=== PATIENT | female | born 1940 | race Caucasian/White ===

== ENCOUNTER 2018-05-20 01:09 | Inpatient (IN) ==
--- NOTE | 2018-05-20 01:37 | ED ---
HPI General Chief Complaint: Fall Stated Complaint: transfer from [place]/medical Time Seen by Provider: 05/20/18 01:16 Source: patient and old records reviewed Mode of arrival: EMS Limitations: no limitations History of Present Illness HPI Narrative: 77-year-old woman, fell 4 days ago, on Eliquis, seen in outside ED was diagnosed with subdural hematoma, 0.9 mm, transferred to trauma surgery. No complaints now. She went to the ED because her sister was worried about a contusion on her posterior occiput. No headache. No other complaints. Related Data Home Medications Medication Instructions Recorded Confirmed aspirin [Aspirin Low Dose] 81 mg PO DAILY 05/20/18 05/20/18 calcium carbonate-vitamin D3 1 tab PO BID 05/20/18 05/20/18 [Calcium 500 With D] Allergies Allergy/AdvReac Type Severity Reaction Status Date / Time digoxin AdvReac Bleeding Verified 05/20/18 01:21 warfarin [From Coumadin] AdvReac Bleeding Verified 05/20/18 01:21 Review of Systems ROS: all other systems reviewed are negative [facility] Social History Social History Substance History: No History of Abuse Second Hand Smoke Exposure: No Smoking Status: Former smoker How Often Do You Have a Drink Containing Alcohol: Monthly or less Immunization History Tetanus Immunization: <5 Years Hx Influenza Vaccine This Season: Yes Exam Narrative Exam Narrative: GENERAL: Well-appearing 77-year-old woman, nontoxic, no acute distress. SKIN: Focused skin assessment warm/dry. HEAD: Atraumatic. Small contusion on the posterior occiput. EYES: Pupils equal and round. No scleral icterus. No injection or drainage. ENT: No nasal bleeding or discharge. Mucous membranes pink and moist. NECK: Moves neck freely. CARDIOVASCULAR: Regular rate and rhythm. No murmur appreciated. RESPIRATORY: No accessory muscle use. Clear to auscultation. Breath sounds equal bilaterally. GASTROINTESTINAL: Abdomen soft, non-tender, nondistended. Hepatic and splenic margins not palpable. MUSCULOSKELETAL: No obvious deformities. No clubbing. No cyanosis. No edema. NEUROLOGICAL: Awake and alert. No obvious cranial nerve deficits. Motor grossly within normal limits. Normal speech. PSYCHIATRIC: Appropriate mood and affect; insight and judgment normal. Course Initial Documented Vital Signs Temperature 98.4 F 05/20/18 01:12 Pulse Rate 101 H 05/20/18 01:12 Respiratory Rate 18 05/20/18 01:12 Blood Pressure 145/98 H 05/20/18 01:12 Pulse Oximetry 96 05/20/18 01:12 Last Documented Vital Signs Temperature 98.4 F 05/20/18 01:12 Pulse Rate 101 H 05/20/18 01:12 Respiratory Rate 18 05/20/18 01:12 Blood Pressure 145/98 H 05/20/18 01:12 Pulse Oximetry 96 05/20/18 01:12 Medical Decision Making MDM Narrative Medical decision making narrative: Reviewed transfer records. Reviewed CT imaging. Spoke with Dr. Perales. Patient's asymptomatic at this time. Looks fantastic. Unremarkable exam. Will admit for serial exams. Medical Screen Exam Complete: Yes Emergency Medical Condition: Yes Discharge Plan Physicians Team ED Provider: Chavo Hernadez Rxs /Orders / Referrals /Forms Prescriptions: No Action aspirin [Aspirin Low Dose] 81 mg Tablet,Delayed Release (Dr/Ec) 81 mg PO DAILY RF: 0 calcium carbonate-vitamin D3 [Calcium 500 With D] 500 mg(1,250mg) -400 unit Tablet 1 tab PO BID RF: 0 Discharge Interventions Interventions: Vital Signs Last Done: 05/20/18 01:12 Status ED Status: With Doctor
[2018-05-20] MEDS ORDERED: Morphine Inj 4 MG/ML Vial IV.PUSH PRN (04:03)
[2018-05-20] MEDS: Sod Chloride 0.9% Inj 1,000 ML IV.CONT SCH ×2 (04:43→15:43)
[2018-05-20] MEDS: Pantoprazole Inj 40 MG Vial IV.PUSH SCH (04:44)
--- NOTE | 2018-05-20 05:46 | XR ---
EXAM DATE: 05/20/2018 5:41 AM EDT AGE/SEX: 77 years / Female INDICATIONS: Shortness of breath. CLINICAL DATA: This is the patient's initial encounter. Patient reports that signs and symptoms have been present for 1 day and indicates a pain score of 0/10. MEDICAL/SURGICAL HISTORY: None. CABG. Pacemaker. COMPARISON: No prior exams available for comparison. FINDINGS: Portable AP view of the chest demonstrates a normal-sized cardiac silhouette with calcification of th e aorta. Patient is post median sternotomy and CABG. Left chest wall cardiac pacing device is present with leads overlying the right heart. EKG lines overlie the patient. Lungs are underinflated and the re is left base airspace consolidation and interstitial prominence bilaterally. Linear subsegmental a telectasis is present at the right lung base. No pleural effusion or pneumothorax is seen. The bones and soft tissues demonstrate no acute abnormality. CONCLUSION: Left lung base airspace consolidation with nonspecific interstitial prominence bilaterally. Electronically signed by: Justo Padron MD 05/20/2018 5:44 AM EDT
--- NOTE | 2018-05-20 05:58 | MH ---
cc: Shawn Perales MD DATE OF ADMISSION: 05/20/2018 CHIEF COMPLAINT: Trauma, trauma transfer from [place], subdural hematoma. HISTORY OF PRESENT ILLNESS: The patient is a 77-year-old female who presents status post fall down stairs. The patient was actually noted to fall approximately 3 days ago in [place] and was complaining of occipital and frontal headaches and went for further evaluation and workup with findings of CT with a right subdural, 9 mm, no shift. The patient was transferred to [facility] for definitive management. The patient is neurologically intact. She is hemodynamically stable. She is hypertensive, systolic of 181 and multiple medical issues include diabetes, coronary artery disease, status post CABG on Xarelto, atrial fibrillation, CHF, hypertension. She has a GCS of 15, again, and is neurologically intact otherwise. PAST MEDICAL HISTORY: Coronary artery disease, CHF, diabetes, hyperlipidemia, hypertension, osteoporosis. PAST SURGICAL HISTORY: Angioplasty, stents, pacer, CABG, tonsillectomy. SOCIAL HISTORY: Denies smoking, ETOH or IVDA. ALLERGIES: COUMADIN AND DIGOXIN. MEDICATIONS: See EMR, Eliquis. FAMILY HISTORY: Denies diabetes or hypertension. REVIEW OF SYSTEMS: A general 12-point review of systems is negative except for as per HPI. PHYSICAL EXAMINATION: GENERAL: No acute distress. VITAL SIGNS: Temperature 98.7, pulse 90, respirations 18, blood pressure 188/83, saturation 99%. HEENT: Pupils equal, round, reactive. HEAD: Normocephalic. Positive superficial hematoma of occipital area. Extraocular muscles intact. NECK: Supple. Trachea midline. Clavicles nontender. LUNGS: Bilateral expansion, clear. HEART: S1, S2, irregular. Pacer palpable. ABDOMEN: Soft, nontender, nondistended. EXTREMITIES: Warm and well perfused. No evidence of trauma. NEUROLOGIC: GCS of 15. Cranial nerves 2-10 intact grossly. 5/5 motor in all extremities. PSYCHIATRIC: Appropriate mood. Appropriate insight. SKIN: No other lesions except for as above, occiput bruising and hematoma. LABORATORY AND DIAGNOSTIC DATA: WBC 7.3, hemoglobin 11.1, hematocrit 33.3, platelets 188. Sodium 138, potassium 4.2, chloride 101, BUN is 19, creatinine 0.89. INR is 1.7, PTT is 40. A CT at [facility] of the head reviewed by myself showing right subtentorial subdural hematoma [address] neck: No evidence of fracture. ASSESSMENT : 1. The patient is a 77-year-old female, status post fall, subdural hematoma, on Eliquis, multiple medical issues. 2. Hypertension. PLAN: After a full clinical assessment, the patient with the above noted issues. At this point, the patient will be admitted to [facility] ICU for close monitoring. The patient will be blood pressure controlled with restarting home medications and will monitor closely. The patient will need frequent neurologic checks every 2 hours. The patient will be on monitor for atrial fibrillation, pacer and cardiac history. The patient has a history of diabetes for which she will be on glucose checks and insulin sliding scale. We will discuss with Dr. Jules for neurosurgery for further evaluation and assessment and defer to his neurologic expertise. Discussed with [facility] Dr. Lara. MD WILFRID Cain/meli , 04:28 AM , 04:37 AM
[2018-05-20] MEDS ORDERED: Loratadine 10 MG Tablet PO PRN (09:41)
[2018-05-20] MEDS ORDERED: FERROUS GLUCONATE 240 MG PO SCH (09:45)
[2018-05-20] MEDS: Docusate Sodium 100 MG Capsule PO SCH ×3 (09:46→20:23)
--- NOTE | 2018-05-20 11:22 | P.PNCC ---
Subjective Brief History: Patient is hospital day 1 but posttrauma day 5 after falling down stairs. She was a trauma transfer from [place] because she was found to have a small right subdural hematoma and she takes Eliquis. 24 Hour Review/Hospital Course: 05/20/2018 Patient was admitted yesterday for a subdural hematoma on Eliquis. She remains clinically stable complaining of headache only. She may go to the floor or potentially be discharged home pending a repeat head CT today Objective Vital Signs / I&O: Vital Signs 05/20/18 01:12 05/20/18 03:23 05/20/18 04:07 Temperature 98.4 F Pulse Rate 101 H 96 H 98 H Respiratory Rate 18 16 16 Blood Pressure 145/98 H 145/98 H 181/83 H Pulse Oximetry 96 95 98 05/20/18 04:27 05/20/18 05:12 05/20/18 05:47 Temperature Pulse Rate 93 H 86 92 H Respiratory Rate 16 16 16 Blood Pressure 181/83 H 182/85 H 182/80 H Pulse Oximetry 95 94 L 92 L 05/20/18 06:00 05/20/18 06:55 05/20/18 07:44 Temperature 98.7 F Pulse Rate 96 H 96 H Respiratory Rate 24 Blood Pressure 179/74 H 165/77 H Pulse Oximetry 98 98 94 L 05/20/18 08:00 Temperature 98.5 F Pulse Rate 84 Respiratory Rate 18 Blood Pressure 171/74 H Pulse Oximetry 94 L Intake & Output 05/19/18 05/20/18 05/20/18 18:59 06:59 18:59 Intake Total 480 / 480 0 / 0 Balance 480 / 480 0 / 0 Weight 65.771 kg Intake: Oral 480 / 480 0 / 0 Other: # Voids 3 3 Weight On Admission 57.4 kg Result Diagrams: 05/21/18 03:32 05/21/18 03:32 Imaging: Impressions Chest X-Ray 05/20/18 06:05 CONCLUSION: Left lung base airspace consolidation with nonspecific interstitial prominence bilaterally. - Exam [employer]IST: Alert oriented no acute distress Hemodynamic/Cardiac: Regular rate and rhythm stable Pulmonary/Respiratory: Clear to auscultation bilaterally Abdomen/GI Nutrition: Soft nontender nondistended Renal/I&O: Adequate urine output Assessment and Plan Plan: Transfer to floor Repeat head CT today Discharge planning
--- NOTE | 2018-05-20 11:36 | CT ---
EXAM DATE: 05/20/2018 11:29 AM EDT AGE/SEX: 77 years / Female INDICATIONS: Subdural hematoma, Fall 4 days ago. CLINICAL DATA: This is the patient's initial encounter. Patient reports that signs and symptoms have been present for 4 - 6 days and indicates a pain score of 0/10. MEDICAL/SURGICAL HISTORY: Cerebrovascular disease. Diabetes. Hypertension. Pacemaker. RADIATION DOSE: 56.35 CTDI (mGy) COMPARISON: No prior exams available for comparison. TECHNIQUE: CT of the head without contrast. Using automated exposure control and adjustment of the mA and/or kV according to patient size, radiation dose was kept as low as reasonably achievable to ob tain optimal diagnostic quality images. DICOM format image data is available electronically for revi ew and comparison. FINDINGS: There is an acute subdural hematoma tracking over the top of the tentorium and along the posterior as pects of the falx. The component along the falx measures 2 mm in thickness. A component of the subdur al hemorrhage also tracks over the right temporal and frontal lobes. This component measures 4 mm in thickness. No other hemorrhage observed. No mass effect. No midline shift. Ventricles are normal in s ize. The calvarium is intact. Paranasal sinuses and mastoid air cells are clear. CONCLUSION: 1. Acute subdural hematoma overlying the right cerebral hemisphere and tentorium as detailed above. No mass effect or shift. . Electronically signed by: Denis Hobbs MD 05/20/2018 11:35 AM EDT
[2018-05-20] MEDS: Gabapentin 100 MG Capsule PO SCH (11:51)
[2018-05-20] MEDS: Ascorbic Acid 500 MG Tablet PO SCH (11:51)
[2018-05-20] MEDS: Furosemide 20 MG Tablet PO SCH (11:51)
[2018-05-20] MEDS: Metoprolol Tartrate 100 MG Tablet PO SCH ×2 (11:51→20:23)
[2018-05-20] MEDS: Levothyroxine 50 MCG Tablet PO SCH (11:52)
--- NOTE | 2018-05-20 13:00 | P.CONNS ---
History of Present Illness Service: Neurosurgery Consult date: 05/20/18 Requesting Physician: Shawn Perales (Trauma surgery) Reason for Consult: Acute subdural hemorrhage Primary Care Provider: Ketty Deluca History of Present Illness: 77-year-old woman who tripped and fell at home 4 days ago without loss of consciousness, on Eliquis, seen in [facility] ED was diagnosed with subdural hematoma and transferred to trauma surgery. She went to the ED because her sister was worried about a contusion on her posterior occiput after she saw her primary care physician. Also complains of headaches and intermittent nausea but denies any vertigo or lightheadedness or dizziness. She has been admitted to the intensive care unit and neurosurgery consultation requested. Review of Systems Constitutional: Reports headache(s), Denies anorexia, Denies body ache(s), Denies chills, Denies daytime sleepiness, Denies excessive sweating, Denies fatigue, Denies fever(s), Denies increased appetite, Denies lack of energy, Denies malaise, Denies night sweats, Denies weakness, Denies weight gain, Denies weight loss, Denies other Eyes: Denies blind spots, Denies blurry vision, Denies bulging eyes, Denies change in vision, Denies double vision, Denies discharge, Denies dry eyes, Denies floaters, Denies irritation, Denies itchy eyes, Denies loss of vision, Denies pain, Denies requires corrective lenses, Denies sensitivity to light, Denies other Ears, Nose, Mouth, and Throat: Denies abnormal hearing, Denies bleeding gums, Denies bad breath, Denies change in voice, Denies dental pain, Denies difficulty swallowing, Denies dizziness, Denies dry mouth, Denies ear discharge , Denies ear pain, Denies facial pain, Denies headache(s), Denies hearing loss, Denies hoarseness, Denies lip swelling, Denies nosebleed, Denies mouth lesions, Denies mouth pain, Denies nasal congestion, Denies nasal discharge, Denies nasal obstruction, Denies nasal trauma, Denies neck lump, Denies neck pain, Denies nose pain, Denies pain with swallowing, Denies poor balance, Denies post nasal drip, Denies ringing in the ears, Denies sinus pain, Denies sinus pressure , Denies sore throat, Denies throat swelling, Denies tongue swelling, Denies other Cardiovascular: Denies chest pain, Denies chest pain at rest, Denies chest pain with activity, Denies excessive sweating, Denies fainting, Denies fast heart rate, Denies foot swelling, Denies generalized swelling, Denies irregular heart rhythm, Denies leg pain with activity, Denies leg sores, Denies leg swelling, Denies lightheadedness, Denies radiating jaw, neck or arm pain, Denies rapid, pounding, or irregular heartbeat, Denies shortness of breath, Denies shortness of breath with activity, Denies shortness of breath when lying down, Denies shortness of breath causing sudden awakening, Denies slow heart rate, Denies other Respiratory: Denies change in phlegm color, Denies chest congestion, Denies cough, Denies coughing up blood, Denies excessive phlegm production, Denies pain on inspiration, Denies pain with cough, Denies shortness of breath, Denies shortness of breath with activity, Denies snoring, Denies stridor, Denies wheezing, Denies other Gastrointestinal: Reports nausea, Denies abdominal pain, Denies belching, Denies black, tarry stools, Denies bloating, Denies bright, red blood in stools , Denies change in bowel habits, Denies constant urge to pass stool, Denies change in stools, Denies coffee ground vomit, Denies constipation, Denies cramping, Denies difficulty swallowing, Denies excessive passing of gas, Denies feeling full early, Denies heartburn, Denies incontinent of stools, Denies loose stools, Denies pain with swallowing, Denies vomiting, Denies vomiting blood, Denies other Genitourinary: Denies abnormal periods, Denies abnormal vaginal bleeding, Denies absent period, Denies bleeding between periods, Denies blood in urine, Denies difficulty starting urination, Denies difficulty urinating, Denies dribbling after urination, Denies frequent nighttime urination, Denies genital itching, Denies genital lesions, Denies heavy periods, Denies hot flashes, Denies light periods, Denies nipple discharge, Denies painful intercourse, Denies painful periods, Denies painful urination, Denies pelvic pain, Denies prolapse symptoms, Denies sexual problems, Denies side pain, Denies urinary incontinence, Denies urinary urgency, Denies vaginal discharge, Denies vaginal dryness, Denies vaginal odor, Denies vaginal itching, Denies other Musculoskeletal: Denies abnormal walking, Denies back pain, Denies body aches, Denies decreased muscle mass, Denies deformity, Denies joint pain, Denies joint swelling, Denies limited joint movement, Denies loss of height, Denies muscle cramps, Denies muscle weakness, Denies neck pain, Denies numbness, Denies radiating pain into limb, Denies stiffness, Denies tingling, Denies other Skin/Breast: Denies acne, Denies bleeding lesions, Denies boil, Denies breast swelling, Denies breast skin changes, Denies breast pain, Denies breast lump, Denies change in breast shape, Denies change in hair, Denies change in skin color, Denies changing lesions, Denies dry skin, Denies excessive hair growth, Denies hair loss, Denies itching, Denies lesions, Denies nail changes, Denies new lesions, Denies nipple discharge, Denies non-healing lesions, Denies redness , Denies sensitivity to light, Denies rash, Denies skin pain, Denies skin ulcer , Denies sores, Denies stretch ewrin, Denies unusual bruising, Denies wounds, Denies yellowing of the skin, Denies other Neurologic: Reports headache(s), Denies abnormal hearing, Denies abnormal movements, Denies abnormal speech, Denies abnormal walking, Denies behavioral changes, Denies burning sensations, Denies confusion, Denies dizziness, Denies fainting, Denies frequent falls, Denies lack of coordination, Denies localized weakness, Denies loss of vision, Denies memory loss, Denies numbness, Denies other visual disturbances, Denies radiating pain, Denies restless legs, Denies convulsions, Denies seizure-like activity, Denies sensory deficit, Denies tingling, Denies tingling/numbness/burning sensations, Denies tremor(s), Denies unsteadiness, Denies weakness, Denies other Psychiatric: Denies abnormal sleep pattern, Denies anxiety, Denies behavioral changes, Denies change in appetite, Denies change in sex drive, Denies confusion , Denies depression, Denies difficulty concentrating, Denies hearing things others do not hear, Denies hopelessness, Denies irritability, Denies lack of enjoyment, Denies memory loss, Denies mood swings, Denies panic attacks, Denies paranoia, Denies seeing things others do not see, Denies sensing things others do not sense, Denies tactile hallucinations, Denies thoughts of hurting/killing others, Denies thoughts of hurting/killing yourself, Denies other Endocrine: Denies cold intolerance, Denies excessive sweating, Denies flushing, Denies heat intolerance, Denies increased hunger, Denies increased thirst, Denies increased urination, Denies rapid, pounding, or irregular heartbeat, Denies other Hematologic/Lymphatic: Reports easy bleeding, Reports easy bruising, Denies enlarged lymph nodes, Denies other Allergic/Immunologic: Denies GI upset with certain foods, Denies hives, Denies itchy eyes, Denies lip swelling, Denies seasonal runny nose, Denies throat swelling, Denies tongue swelling, Denies wheezing, Denies other PMFSH - History History Provided By: Patient - Medical History Medical History: Medical History (Last Updated 05/20/18 @ 12:57 by Frederick Jules MD) Presence of combination internal cardiac defibrillator (ICD) and pacemaker ( Acute) Thyroid disorder (Acute) Osteoporosis (Acute) Hypertension (Acute) Hyperlipidemia (Acute) Diabetes (Acute) CHF (congestive heart failure) (Acute) CAD (coronary artery disease) (Acute) Afib (Acute) - Surgical History Surgical History: Surgical History (Last Updated 05/20/18 @ 12:57 by Frederick Jules MD) History of heart artery stent (Acute) H/O angioplasty (Acute) - Tobacco History Second Hand Smoke Exposure: No Smoking Status: Former smoker - Alcohol History How Often Do You Have a Drink Containing Alcohol: Monthly or less - Substance Use History Substance History: No History of Abuse - Travel History Recent Travel in the [place] Within the Last 8 Weeks: No Recent Travel Out of the Country Within the Last 8 Weeks: No - Immunization History Tetanus Immunization: <5 Years Hx Influenza Vaccine This Season: Yes Medications and Allergies Active Medications: Active Medications Hydrocodone Bitart/Acetaminophen ([place] 5/325) 1 tab PO Q4H PRN PRN Reason: Pain > 3 Last Admin: 09/05/18 04:45 Dose: 1 tab Al Hydroxide/Mg Hydroxide (Milk Of Areli Stephens) 30 ml PO BID [facility] Last Admin: 05/20/18 09:57 Dose: Not Given Ascorbic Acid (Vitamin C) 500 mg PO DAILY [facility] Last Admin: 05/20/18 11:51 Dose: 500 mg Atorvastatin Calcium (Lipitor) 10 mg PO DAILY [facility] Last Admin: 05/20/18 12:23 Dose: 10 mg Bacitracin (Baciguent Oint) 1 applicatio TOPICAL BID [facility] Last Admin: 05/20/18 09:55 Dose: Not Given Cetirizine HCl (Zyrtec) 10 mg PO DAILY PRN Chlorhexidine Gluconate (Chlorhexidine 2% Cloth) 3 pack TOPICAL DAILY@0400 [facility] Stop: 05/26/18 03:59 Chlorhexidine Gluconate (Chlorhexidine 2% Cloth) 3 pack TOPICAL DAILY@0400 PRN PRN Reason: Extra cloth needed Stop: 05/26/18 03:59 Cyanocobalamin (Vitamin B12) 1,000 mcg PO DAILY [facility] Last Admin: 05/20/18 11:51 Dose: 1,000 mcg Docusate Sodium (Colace) 100 mg PO BID [facility] Last Admin: 05/20/18 09:57 Dose: Not Given Enalaprilat (Vasotec Inj) 1.25 mg IV.PUSH Q8H PRN PRN Reason: Blood pressure 180/95 Last Admin: 05/20/18 06:57 Dose: 1.25 mg Furosemide (Lasix) 20 mg PO DAILY [facility] Last Admin: 05/20/18 11:51 Dose: 20 mg Gabapentin (Neurontin) 100 mg PO DAILY [facility] Last Admin: 05/20/18 11:51 Dose: 100 mg Sodium Chloride (Ns Inj) 1,000 mls @ 100 mls/hr IV.CONT .Q10H [facility] Last Admin: 05/20/18 04:43 Dose: 100 mls/hr Insulin Detemir (Levemir Inj) 17 unit SQ HS [facility] Isosorbide Mononitrate (Imdur) 120 mg PO DAILY [facility] Levothyroxine Sodium (Synthroid) 50 mcg PO DAILY@0600 [facility] Last Admin: 05/20/18 11:52 Dose: 50 mcg Loratadine (Claritin) 10 mg PO DAILY PRN PRN Reason: Allergic Symptoms Losartan Potassium (Cozaar) 100 mg PO DAILY [facility] Last Admin: 05/20/18 11:51 Dose: 100 mg Metoprolol Tartrate (Lopressor) 100 mg PO BID [facility] Last Admin: 05/20/18 11:51 Dose: 100 mg Morphine Sulfate (Morphine Inj) 2 mg IV.PUSH Q3H PRN PRN Reason: Break through pain Last Admin: 05/20/18 06:12 Dose: 2 mg Non-Formulary Medication (Ferrous Gluconate [Iron High Potency]) 240 mg PO DAILY [facility] Non-Formulary Medication (Teriparatide [Forteo]) 20 mcg SQ DAILY [facility] Non-Formulary Medication (Calcium Carbonate-Vitamin D3 [Calcium 500 With D]) 1 tab PO BID [facility] Ondansetron HCl (Zofran Inj) 4 mg IV.PUSH Q6H PRN PRN Reason: NAUSEA OR VOMITING Last Admin: 05/20/18 06:15 Dose: 4 mg Pantoprazole Sodium (Protonix Inj) 40 mg IV.PUSH Q24H [facility] Last Admin: 05/20/18 04:44 Dose: 40 mg Potassium Chloride (K-Dur) 20 meq PO DAILY [facility] Last Admin: 05/20/18 12:22 Dose: 20 meq Sodium Chloride (Ns Flush) 2 ml IV.FLUSH UNSCH PRN PRN Reason: FLUSH AFTER USING IV ACCESS Allergies Allergy/AdvReac Type Severity Reaction Status Date / Time meperidine Allergy Tachycardia Verified 05/20/18 02:32 atropine AdvReac Tachycardia Verified 05/20/18 02:32 digoxin AdvReac Bleeding Verified 05/20/18 01:21 warfarin [From Coumadin] AdvReac Bleeding Verified 05/20/18 01:21 Home Medications Medication Instructions Recorded Confirmed Type apixaban [Eliquis] 5 mg PO BID 05/20/18 05/20/18 History ascorbic acid (vitamin C) [Vitamin 500 mg PO DAILY 05/20/18 05/20/18 History C] aspirin [Aspirin Low Dose] 81 mg PO DAILY 05/20/18 05/20/18 History calcium carbonate-vitamin D3 1 tab PO BID 05/20/18 05/20/18 History [Calcium 500 With D] cetirizine [Zyrtec] 10 mg PO DAILY PRN 05/20/18 05/20/18 History cyanocobalamin (vitamin B-12) 1,000 mcg PO DAILY 05/20/18 05/20/18 History [Vitamin B-12] ferrous gluconate [Iron High 240 mg PO DAILY 05/20/18 05/20/18 History Potency] furosemide 20 mg PO DAILY 05/20/18 05/20/18 History gabapentin 100 mg PO DAILY 05/20/18 05/20/18 History insulin glargine [Lantus Solostar 17 unit SUB-Q HS 05/20/18 05/20/18 History U-100 Insulin] insulin regular human [Novolin R 1 sliding scale dose SUB-Q UD 05/20/18 History Regular U-100 Insuln] isosorbide mononitrate 120 mg PO QAM 05/20/18 05/20/18 History levothyroxine 50 mcg PO DAILY 05/20/18 05/20/18 History loratadine [Claritin] 10 mg PO DAILY PRN 05/20/18 05/20/18 History losartan 100 mg PO DAILY 05/20/18 05/20/18 History lysine 1,000 mg PO DAILY 05/20/18 05/20/18 History metoprolol tartrate 100 mg PO BID 05/20/18 05/20/18 History nitroglycerin 0.4 mg SUBLINGUAL Q5-15M PRN 05/20/18 05/20/18 History potassium chloride 20 meq PO DAILY 05/20/18 05/20/18 History rosuvastatin [Crestor] 5 mg PO DAILY 05/20/18 05/20/18 History teriparatide [Forteo] 20 mcg SUB-Q DAILY 05/20/18 05/20/18 History Exam Vital signs: Vital Signs 05/20/18 01:12 05/20/18 03:23 05/20/18 04:07 Temperature 98.4 F Pulse Rate 101 H 96 H 98 H Respiratory Rate 18 16 16 Blood Pressure 145/98 H 145/98 H 181/83 H Pulse Oximetry 96 95 98 05/20/18 04:27 05/20/18 05:12 05/20/18 05:47 Temperature Pulse Rate 93 H 86 92 H Respiratory Rate 16 16 16 Blood Pressure 181/83 H 182/85 H 182/80 H Pulse Oximetry 95 94 L 92 L 05/20/18 06:00 05/20/18 06:55 05/20/18 07:44 Temperature 98.7 F Pulse Rate 96 H 96 H Respiratory Rate 24 Blood Pressure 179/74 H 165/77 H Pulse Oximetry 98 98 94 L 05/20/18 08:00 Temperature 98.5 F Pulse Rate 84 Respiratory Rate 18 Blood Pressure 171/74 H Pulse Oximetry 94 L Intake & Output 05/19/18 05/20/18 05/20/18 18:59 06:59 18:59 Intake Total 480 / 480 0 / 0 Balance 480 / 480 0 / 0 Weight 65.771 kg Intake: Oral 480 / 480 0 / 0 Other: # Voids 3 3 Weight On Admission 57.4 kg - Constitutional no acute distress, obese - Routine HEENT Exam Head: Present: normocephalic, abrasion Eye: Present: EOMI, PERRL ENT: Present: mucous membranes moist, oropharynx clear, nares patent, external ear normal - Routine Neck Exam Present: supple, full ROM - Routine Respiratory Exam Present: CTA bilaterally - Routine Cardiovascular Exam Present: irregularly irregular - Routine Abdominal Exam Present: soft, normoactive bowel sounds - Routine Extremities Exam Present: full ROM - Routine Skin Exam Present: intact - Routine Neurological Exam Present: oriented X3, CN II-XII intact, normal reflexes, plantar reflex, moving all extremities, normal tone, normal speech - Detailed Neurological Exam: Coma Scale Verbal Response: Oriented Motor Response: Obey commands Results - Laboratory Findings CBC and BMP: 05/20/18 12:47 05/20/18 12:47 Abnormal lab findings: Abnormal Labs 05/20/18 05:00 POC Glucose 149 H - Diagnostic Findings Additional findings: Impressions Head CT 05/20/18 00:00 CONCLUSION: 1. Acute subdural hematoma overlying the right cerebral hemisphere and tentorium as detailed above. No mass effect or shift. . Chest X-Ray 05/20/18 06:05 CONCLUSION: Left lung base airspace consolidation with nonspecific interstitial prominence bilaterally. Assessment and Plan - Assessment (1) Acute subdural hematoma Code(s): S06.5X9A - Traumatic subdural hemorrhage with loss of consciousness of unspecified duration, initial encounter Status: Acute (2) Medication induced coagulopathy Code(s): D68.9 - Coagulation defect, unspecified; T50.905A - Adverse effect of unspecified drugs, medicaments and biological substances, initial encounter Status: Chronic - Plan 77-year-old lady who is on the chronic anticoagulation Eliquis for atrial fibrillation transferred to [facility] for small right acute subdural hemorrhage after a fall 4 days ago. Patient does not have any focal neurologic deficits noted. Follow-up CT scan of the head with a small the right frontotemporoparietal 5 mm subdural hemorrhage along with extension into the tentorium and interhemispheric fissure posteriorly adjacent to the falx without any midline shift. This appears relatively stable. At this point plan is for nonsurgical management and hold off on resuming anticoagulation for the next 10- 14 days. Increase activity and diet as tolerated with physical therapy safety evaluation. Gastrointestinal stress ulcer prophylaxis and mechanical DVT prophylaxis.
[2018-05-20 13:05] LABS: Baso % (Auto) 0.3 % (0.0-2.0); Eos % (Auto) 0.3 % (0.0-4.0); Hematocrit 34.6 % (35.0-46.0); Hemoglobin 11.4 gm/dL (11.6-15.3); Lymph # (Auto) 0.8 th/mm3 (1.0-4.8); Lymph % (Auto) 9.8 % (9.0-44.0); Mean Corpuscular HGB Conc 32.9 % (32.0-36.0); Mean Corpuscular Hemoglobin 31.5 pg (27.0-34.0); Mean Corpuscular Volume 95.9 fL (80.0-100.0); Mono # (Auto) 0.7 th/mm3 (0.0-0.9); Mono % (Auto) 8.1 % (0.0-8.0); Neut # (Auto) 6.7 th/mm3 (1.8-7.7); Neut % (Auto) 81.5 % (16.0-70.0); Platelet Count 204 th/mm3 (150-450); Red Blood Count 3.61 mil/mm3 (4.00-5.30); Red Cell Distribution Width 14.1 % (11.6-17.2); White Blood Count 8.3 th/mm3 (4.0-11.0)
[2018-05-20 13:28] LABS: Carbon Dioxide 30.2 meq/L (21.0-32.0); Potassium 3.9 meq/L (3.5-5.1)
[2018-05-20] MEDS: Isosorbide Mononitrate 60 MG ER 24HR Tablet (Imdur) PO SCH (14:30)
[2018-05-20] MEDS: Calcium/Vitamin D 250/125 MG Tablet PO SCH ×2 (15:35→20:22)
[2018-05-20] MEDS ORDERED: Insulin Detemir Inj 1,000 UNIT/10 ML Vial SQ SCH (21:00)
[2018-05-21 03:58] LABS: Baso % (Auto) 0.2 % (0.0-2.0); Eos # (Auto) 0.1 th/mm3 (0.0-0.4); Eos % (Auto) 1.1 % (0.0-4.0); Hematocrit 27.9 % (35.0-46.0); Hemoglobin 9.3 gm/dL (11.6-15.3); Lymph # (Auto) 1.2 th/mm3 (1.0-4.8); Lymph % (Auto) 16.8 % (9.0-44.0); Mean Corpuscular HGB Conc 33.5 % (32.0-36.0); Mean Corpuscular Hemoglobin 31.8 pg (27.0-34.0); Mean Corpuscular Volume 95.1 fL (80.0-100.0); Mono # (Auto) 0.9 th/mm3 (0.0-0.9); Mono % (Auto) 11.7 % (0.0-8.0); Neut # (Auto) 5.1 th/mm3 (1.8-7.7); Neut % (Auto) 70.2 % (16.0-70.0); Platelet Count 180 th/mm3 (150-450); Red Blood Count 2.93 mil/mm3 (4.00-5.30); Red Cell Distribution Width 14.3 % (11.6-17.2); White Blood Count 7.3 th/mm3 (4.0-11.0)
[2018-05-21] MEDS ORDERED: Chlorhexidine Gluconate 2% 1 Pack (2 Cloths) TOPICAL PRN (04:00)
[2018-05-21] MEDS ORDERED: Chlorhexidine Gluconate 2% 1 Pack (2 Cloths) TOPICAL SCH (04:00)
[2018-05-21 04:27] LABS: Albumin 3.2 g/dL (3.4-5.0); Anion Gap 7 meq/L (5-15); Aspartate Aminotransferase 14 U/L (15-37); Blood Urea Nitrogen 18 mg/dL (7-18); Chloride 103 meq/L (98-107); Glomerular Filtration Rate 51 mL/min (>89); Glucose,Random 218 mg/dL (74-106); Potassium 4.3 meq/L (3.5-5.1); Sodium 139 meq/L (136-145)
[2018-05-21 04:30] LABS: Alanine Aminotransferase 20 U/L (10-53); Alkaline Phosphatase 77 U/L (45-117); Total Protein 6.2 g/dL (6.4-8.2)
[2018-05-21] MEDS: Pantoprazole Inj 40 MG Vial IV.PUSH SCH (05:04)
[2018-05-21] MEDS: Levothyroxine 50 MCG Tablet PO SCH (05:05)
[2018-05-21] MEDS ORDERED: Ferrous Sulfate 325 MG Tablet PO SCH (09:00)
[2018-05-21] MEDS: Ascorbic Acid 500 MG Tablet PO SCH (09:21)
[2018-05-21] MEDS: Calcium/Vitamin D 250/125 MG Tablet PO SCH (09:21)
[2018-05-21] MEDS: Furosemide 20 MG Tablet PO SCH (09:21)
[2018-05-21] MEDS: Isosorbide Mononitrate 60 MG ER 24HR Tablet (Imdur) PO SCH (09:22)
[2018-05-21] MEDS: Gabapentin 100 MG Capsule PO SCH (09:22)
[2018-05-21] MEDS: Metoprolol Tartrate 100 MG Tablet PO SCH (09:23)
[2018-05-21] MEDS: Docusate Sodium 100 MG Capsule PO SCH (09:24)
[2018-05-21 09:36] VITALS: BP 149/68; PULSE 93; TEMP 98.5; O2SAT 99
--- NOTE | 2018-05-21 11:54 | P.DS ---
<Sandy Rokc F - Last Filed: 05/21/18 11:47> Date of admission: 05/20/18 01:28 Primary care physician: Ketty Deluca Attending physician on discharge: Kyler Sandoval date of discharge: 05/21/18 Brief History from admission: Fall 3 days prior to admission DS: Diagnosis - Discharge Diagnosis (1) Acute subdural hematoma Status: Acute (2) Medication induced coagulopathy Status: Chronic DS: Medications - Discharge Medications Prescriptions: hydrocodone-acetaminophen 1 tab PO Q4H PRN 3 Days #18 tab PRN Reason: Pain > 3 DS: Summary Hospital Course: KASHIA: This is a 77-year-old female who sustained a mechanical fall. She fell down the stairs 3 days prior to admission while she was still in [place]. She had been complaining of headaches. She is on Eliquis. She was a trauma transfer from [facility]. INJURIES: RIGHT SDH (9mm) PMHx: CABG. CHF. Pacer. DM. HLD. HTN. Osteoporosis Procedures: Consults: Neurosurgery. Case management. The patient would like to go home. The patient is now tolerating a po diet. Eating and drinking well. Pain is being managed well with PO pain medications, and patient is being a provided with a script for pain meds upon discharge. [This patient will be prescribed narcotic pain medications due to his traumatic injuries. The patient has a normal physiological response to severe traumatic injuries and surgery. He will need acute pain management with prescribed narcotic treatment. The [employer] prescription drug monitoring program database has been queried.] (NO driving while taking narcotic pain medication enforced to patient.) We have recommended to patient to continue with stool softeners while taking narcotic pain medications to prevent constipation. Pt has been participating in PT and OT while admitted at [facility] and has been ambulating with their assistance and independently. No PT needs at home. All follow up appointments have been provided and discussed with the patient. It is recommended that the patient keeps all his follow up appointments for continued recovery. Patient's condition and plan of care discussed with collaborating trauma surgeon. He is agreeable to plan for discharge today. Therefore, the patient is stable to be safely discharged home from a trauma surgery standpoint. Thank you for allowing us to participate in her care. We wish Sonali the best in her recovery. [facility] Neurosurgery consulted and assisting in management care Supportive care Serial neuro checks CT brain for any change in neurological status Pain management PT and OT ordered [facility] out of bed Bowel regimen Follow-up with neurosurgery outpatient - Time Spent with Patient Total time spent providing and/or coordinating discharge services: Greater than 30 minutes Exam Vital signs: Vital Signs 05/20/18 12:00 05/20/18 16:00 05/20/18 20:00 Temperature 98.1 F 98.5 F 98.1 F Pulse Rate 84 76 90 Respiratory Rate 18 20 20 Blood Pressure 174/77 H 145/63 H 118/69 Pulse Oximetry 97 98 94 L 05/21/18 00:00 05/21/18 04:00 05/21/18 08:00 Temperature 98.0 F 98.0 F 98.5 F Pulse Rate 78 84 93 H Respiratory Rate 18 18 16 Blood Pressure 116/55 L 111/49 L 149/68 H Pulse Oximetry 94 L 95 99 Intake & Output 05/20/18 05/21/18 05/21/18 18:59 06:59 18:59 Intake Total 1480 / 1480 300 / 300 Balance 1480 / 1480 300 / 300 Weight 57.6 kg Intake: IV 1000 / 1000 NS Inj 1,000 ML @ 100 mls/hr IV 1000 / 1000 .CONT .Q10H KONG Rx#:[id number] Oral 480 / 480 300 / 300 Other: # Voids 2 2 Date of Last Bowel Movement 05/20/18 05/20/18 # Bowel Movements 1 Narrative: GENERAL: This is a 77-year-old female lying in bed. No distress noted. SKIN: Warm and dry. HEAD: Atraumatic. Normocephalic. EYES: PERRLA ENT: No nasal bleeding or discharge. Mucous membranes pink and moist. NECK: Trachea midline. No JVD. CARDIOVASCULAR: Regular rate and rhythm. RESPIRATORY: No accessory muscle use. Lungs are clear to auscultation. Breath sounds equal bilaterally. No distress or dyspnea. GASTROINTESTINAL: BS + x 4 quads. Abdomen soft, non-tender, nondistended. MUSCULOSKELETAL: Extremities without cyanosis, or edema. + peripheral pulses x 4 extremities. Warm with good capillary refill and sensation. MAEW. NEUROLOGICAL: Awake and alert. Normal speech and pattern. Results Procedures completed during hospitalization: . Labs on day of discharge: Labs from last 24 hours 05/21/18 05/21/18 05/20/18 03:32 03:32 20:45 WBC 7.3 RBC 2.93 L Hgb 9.3 L D Hct 27.9 L MCV 95.1 MCH 31.8 MCHC 33.5 RDW 14.3 Plt Count 180 MPV 7.0 Neut % (Auto) 70.2 H Lymph % (Auto) 16.8 Sevier % (Auto) 11.7 H Eos % (Auto) 1.1 Baso % (Auto) 0.2 Neut # (Auto) 5.1 Lymph # (Auto) 1.2 Sevier # (Auto) 0.9 Eos # (Auto) 0.1 Baso # (Auto) 0.0 WBC Differential . Differential Comment Auto diff final Sodium 139 Potassium 4.3 Chloride 103 Carbon Dioxide 29.0 Anion Gap 7 BUN 18 Creatinine 1.05 H Estimated GFR 51 L POC Glucose 247 H Random Glucose 218 H Calcium 9.0 Total Bilirubin 0.5 AST 14 L ALT 20 Alkaline Phosphatase 77 Total Protein 6.2 L Albumin 3.2 L 05/20/18 05/20/18 12:47 12:47 WBC 8.3 RBC 3.61 L Hgb 11.4 L Hct 34.6 L MCV 95.9 MCH 31.5 MCHC 32.9 RDW 14.1 Plt Count 204 MPV 7.0 Neut % (Auto) 81.5 H Lymph % (Auto) 9.8 Sevier % (Auto) 8.1 H Eos % (Auto) 0.3 Baso % (Auto) 0.3 Neut # (Auto) 6.7 Lymph # (Auto) 0.8 L Sevier # (Auto) 0.7 Eos # (Auto) 0.0 Baso # (Auto) 0.0 WBC Differential . Differential Comment Auto diff final Sodium 137 Potassium 3.9 Chloride 100 Carbon Dioxide 30.2 Anion Gap 7 BUN 11 Creatinine 0.80 Estimated GFR 70 L POC Glucose Random Glucose 154 H Calcium 9.0 Total Bilirubin AST ALT Alkaline Phosphatase Total Protein Albumin - Impressions ITS Impressions Head CT 05/20/18 00:00 CONCLUSION: 1. Acute subdural hematoma overlying the right cerebral hemisphere and tentorium as detailed above. No mass effect or shift. . Chest X-Ray 05/20/18 06:05 CONCLUSION: Left lung base airspace consolidation with nonspecific interstitial prominence bilaterally. <Kyler Aj - Last Filed: 05/22/18 08:53> Date of admission: 05/20/18 01:28 Primary care physician: Ketty Deluca DS: Summary - Time Spent with Patient Total time spent providing and/or coordinating discharge services: Exam Vital signs: Vital Signs 05/21/18 12:00 Respiratory Rate 20 Intake & Output 05/21/18 05/22/18 05/22/18 18:59 06:59 18:59 Intake Total 240 / 240 Balance 240 / 240 Intake: Oral 240 / 240 Other: Date of Last Bowel Movement 05/20/18 Results - Impressions ITS Impressions Head CT 05/20/18 00:00 CONCLUSION: 1. Acute subdural hematoma overlying the right cerebral hemisphere and tentorium as detailed above. No mass effect or shift. . Chest X-Ray 05/20/18 06:05 CONCLUSION: Left lung base airspace consolidation with nonspecific interstitial prominence bilaterally. - Additional Comments The exam, history, and the medical decision-making described in the above note were completed with the assistance of the mid-level provider. I reviewed and agree with the findings presented. I attest that I had a [id number] encounter with the patient on the same day, and personally performed and documented my assessment and findings in the medical record. Discharge Plan - Discharge Order Discharge Orders: Discharge Order (Routine); Ordered 05/21/18 Ordered By: Sandy Rock - Physicians Team Primary Care Provider: Ketty Deluca Attending Provider: Shawn Perales Other Providers: Clinton Vera MD ; Kyler Aj MD ; Systems, [facility] ; Denis Dwyer MD ; Sandy Rock ARNP ; Shawn Perales MD ; Bel Tello MD ; Jaciel Rogers ARNP ; Yvan Lara MD ; Frederick Jules MD
[2018-05-21 12:12] VITALS: RESP 20
--- NOTE | 2018-05-21 12:18 | P.PNNS ---
Subjective Interval history: Pt awake and alert. Mild headache took Tylenol for. No n/v. No paresthesias. No weakness. Pt ambulates to bathroom with monitoring. <Osvaldo Bullard - Last Filed: 05/21/18 12:13> Physical Exam Vital signs: Vital Signs 05/20/18 16:00 05/20/18 20:00 05/21/18 00:00 Temperature 98.5 F 98.1 F 98.0 F Pulse Rate 76 90 78 Respiratory Rate 20 20 18 Blood Pressure 145/63 H 118/69 116/55 L Pulse Oximetry 98 94 L 94 L 05/21/18 04:00 05/21/18 08:00 05/21/18 12:00 Temperature 98.0 F 98.5 F Pulse Rate 84 93 H Respiratory Rate 18 16 20 Blood Pressure 111/49 L 149/68 H Pulse Oximetry 95 99 Intake & Output 05/20/18 05/21/18 05/21/18 18:59 06:59 18:59 Intake Total 1480 / 1480 300 / 300 240 / 240 Balance 1480 / 1480 300 / 300 240 / 240 Weight 57.6 kg Intake: IV 1000 / 1000 NS Inj 1,000 ML @ 100 mls/hr IV 1000 / 1000 .CONT .Q10H KONG Rx#:[id number] Oral 480 / 480 300 / 300 240 / 240 Other: # Voids 2 2 Date of Last Bowel Movement 05/20/18 05/20/18 # Bowel Movements 1 - Constitutional no acute distress, average body habitus - Routine HEENT Exam Head: Present: normocephalic, atraumatic Eye: Present: PERRL (Pupils 3mm bilaterally reactive bilaterally.). Absent: conjunctival icterus ENT: Present: oropharynx clear - Routine Neck Exam Present: trachea midline - Routine Respiratory Exam Present: CTA bilaterally. Absent: respiratory distress, rhonchi, wheezes - Routine Cardiovascular Exam Present: RRR, S1, S2. Absent: murmur - Routine Abdominal Exam Present: soft, normoactive bowel sounds. Absent: tenderness - Routine Extremities Exam Absent: cyanosis, edema - Routine Skin Exam Absent: cyanosis, erythema - Routine Neurological Exam Present: alert, oriented X3, CN II-XII intact, moving all extremities, normal speech. Absent: sensory deficit, motor deficit, altered mental status, facial asymmetry - Detailed Neurological Exam: Coma Scale Eye Opening: Spontaneous Verbal Response: Oriented Motor Response: Obey commands Kiera Coma Scale Total: 15 - Routine Psychiatric Exam Present: normal affect, cooperative, good insight, good judgment. Absent: anxious, agitated <Osvaldo Bullard - Last Filed: 05/21/18 12:13> Vital signs: Vital Signs 05/20/18 20:00 05/21/18 00:00 05/21/18 04:00 Temperature 98.1 F 98.0 F 98.0 F Pulse Rate 90 78 84 Respiratory Rate 20 18 18 Blood Pressure 118/69 116/55 L 111/49 L Pulse Oximetry 94 L 94 L 95 05/21/18 08:00 05/21/18 12:00 Temperature 98.5 F Pulse Rate 93 H Respiratory Rate 16 20 Blood Pressure 149/68 H Pulse Oximetry 99 Intake & Output 05/20/18 05/21/18 05/21/18 18:59 06:59 18:59 Intake Total 1480 / 1480 300 / 300 240 / 240 Balance 1480 / 1480 300 / 300 240 / 240 Weight 57.6 kg Intake: IV 1000 / 1000 NS Inj 1,000 ML @ 100 mls/hr IV 1000 / 1000 .CONT .Q10H KONG Rx#:[id number] Oral 480 / 480 300 / 300 240 / 240 Other: # Voids 2 2 Date of Last Bowel Movement 05/20/18 05/20/18 # Bowel Movements 1 <Frederick Jules - Last Filed: 05/21/18 16:36> Assessment and Plan - Assessment (1) Acute subdural hematoma Code(s): S06.5X9A - Traumatic subdural hemorrhage with loss of consciousness of unspecified duration, initial encounter Status: Acute (2) Medication induced coagulopathy Code(s): 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 - Coagulation defect, unspecified; T50.905A - Adverse effect of unspecified drugs, medicaments and biological substances, initial encounter Status: Chronic (3) Presence of combination internal cardiac defibrillator (ICD) and pacemaker Code(s): Z95.810 - Presence of automatic (implantable) cardiac defibrillator Status: Acute (4) History of heart artery stent Code(s): Z95.5 - Presence of coronary angioplasty implant and graft Status: Acute (5) H/O angioplasty Code(s): Z98.62 - Peripheral vascular angioplasty status Status: Acute (6) Thyroid disorder Code(s): E07.9 - Disorder of thyroid, unspecified Status: Acute (7) Osteoporosis Code(s): M81.0 - Age-related osteoporosis without current pathological fracture Status: Acute (8) Hypertension Code(s): I10 - Essential (primary) hypertension Status: Acute - Plan 77-year-old lady who is on the chronic anticoagulation Eliquis for atrial fibrillation transferred to [facility] for small right acute subdural hemorrhage after a fall 4 days ago. Patient does not have any focal neurologic deficits noted. Follow-up CT scan of the head with a small the right frontotemporoparietal 5 mm subdural hemorrhage along with extension into the tentorium and interhemispheric fissure posteriorly adjacent to the falx without any midline shift. This appears relatively stable. P: Pt is stable to discharge home. She states she has a good support system at home that can help her if needed. She is doing well without complaints. She will continue to hold anticoagulation and will follow up in [address] head and if sdh resolved will clear her to resume anticoagulation. Discussed restrictions with pt. She understands and states she will be compliant. 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 I reviewed and agree with the findings presented. I attest that I had a [id number] encounter with the patient on the same day, and personally performed and documented my assessment and findings in the medical record. <Frederick Jules - Last Filed: 05/21/18 16:36>
== END 2018-05-21 13:30 | disposition home or self-care (01) ==
LOC: NEPC 01:09 → NEDA 01:28 → N03 06:25
PROVIDERS: ADMIT Surgery; ATTEND Surgery